=== PATIENT | female | born 2000 | race Two or more races ===

== ENCOUNTER 2019-10-07 13:07 | Emergency (ER) | payer MEDICAID, SELFPAY ==
[~2019-10-07] VITALS: Ht 162.6 cm; Wt 94.0 kg
--- NOTE | 2019-10-07 13:23 | NUR ---
Patient BIB by EMS with c/o abd cramping since yesterday with bleeding starting this morning. Reports a positive home test 3 days ago. Denies N/V. Call light within reach. attached to monitors.
--- NOTE | 2019-10-07 14:51 | NUR ---
REPORT FROM EVELYN BAUM. PT RESTING IN ROOM WITH FAMILY AT BS. VSS. NO NEEDS EXPRESSED. CALL LIGHT WITHIN REACH. AWAITING UA RESULTS.
[2019-10-07 15:01] LABS: MICROSCOPIC INDICATED
--- NOTE | 2019-10-07 15:42 | NUR ---
PT RESTING IN ROOM WITH FAMILY AT BS. NO NEEDS EXPRESSED. CALL LIGHT WITHIN REACH. NEW ORDERS RECEIVED FOR US. AWAITING US AT THIS TIME.
--- NOTE | 2019-10-07 16:02 | NUR ---
pt to us.
[2019-10-07 16:58] VITALS: BP 113/68
--- NOTE | 2019-10-07 17:16 | NUR ---
pt dc to L&d in with tech accompanied by fob.
== END 2019-10-07 17:20 | disposition home or self-care (01) ==
LOC: ED 14:07
DX: O26.893 Other specified pregnancy related conditions, third trimester (principal); R10.2 Pelvic and perineal pain; R10.32 Left lower quadrant pain; R11.0 Nausea; Z3A.35 35 weeks gestation of pregnancy
CPT/HCPCS: 36415; 76801; 81001; 84702; 86901; 87086; 99284